=== PATIENT | female | born 1960 | race Caucasian/White ===

== ENCOUNTER 2017-12-09 16:01 | Emergency (ER) | payer OTHER ==
[~2017-12-09] VITALS: Ht 149.9 cm; Wt 44.7 kg
[2017-12-09 16:22] VITALS: BP 144/90
--- NOTE | 2017-12-09 16:25 | NUR ---
AFTER PROVIDING URINE SAMPLE, PT AMBULATES BACK TO THE LOBBY
--- NOTE | 2017-12-09 17:03 | NUR ---
PT ROOMED IN ED BED 6 REPORT GIVEN TO ALDEN WHARTON. EDMD AWARE.
[2017-12-09] MEDS ORDERED: FAMOTIDINE 20 MG/2 ML VIAL IVP ONE (17:20)
[2017-12-09] MEDS ORDERED: ONDANSETRON 4 MG/2 ML VIAL IVP ONE (17:20)
[2017-12-09] MEDS ORDERED: NACL 0.9% 1,000 ML IV ONE (17:20)
[2017-12-09] MEDS ORDERED: KETOROLAC 30 MG/ML VIAL IVP ONE (17:20)
[2017-12-09 17:40] LABS: BASOPHILS % (AUTO) 0.4 % (0.0-2.0); EOSINOPHILS % (AUTO) 0.5 % (0.0-4.0); HEMATOCRIT 42.9 % (36-48); HEMOGLOBIN 13.9 g/dL (12.0-16.0); LYMPHOCYTES # (AUTO) 2.3 K/uL (2.5-16.5); LYMPHOCYTES % (AUTO) 34.9 % (20.5-51.1); MEAN CORPUSCULAR HEMOGLOBIN 28 pg (27-31); MEAN CORPUSCULAR HGB CONC 32 g/dL (33-37); MEAN CORPUSCULAR VOLUME 87.7 fL (80-94); MONOCYTES # (AUTO) 0.4 K/uL (0.8-1.0); MONOCYTES % (AUTO) 6.4 % (1.7-9.3); NEUTROPHILS # (AUTO) 3.8 K/uL (1.8-7.7); NEUTROPHILS % (AUTO) 57.8 % (42.2-75.2); PLATELET COUNT (AUTO) 258 K/uL (140-450); RED BLOOD CELL COUNT(AUTO) 4.89 MIL/uL (4.20-5.40); RED CELL DISTRIBUTION WIDTH 13.7 % (11.6-13.7); WHITE BLOOD COUNT (AUTO) 6.5 K/uL (4.8-10.8)
[2017-12-09 17:49] LABS: PROTHROMBIN TIME 10.4 secs (10.8-13.4)
[2017-12-09 17:52] LABS: ALBUMIN 4.3 g/dL (3.4-5.0); ANION GAP 12.5 (8-16); CARBON DIOXIDE 26.2 mmol/L (21-32); CREATININE 0.9 mg/dL (0.6-1.3); POTASSIUM 3.7 mmol/L (3.5-5.1); TOTAL BILIRUBIN 0.4 mg/dL (0.0-1.0)
[2017-12-09 18:03] LABS: APPEARANCE,URINE CLEAR (CLEAR); BILIRUBIN,URINE NEGATIVE (NEGATIVE); BLOOD, URINE 1+ (NEGATIVE); COLOR,URINE YELLOW (YELLOW); LEUKOCYTE ESTERASE ,URINE 1+ (NEGATIVE); NITRITE, URINE NEGATIVE (NEGATIVE); PH,URINE 8.5 (5.0-9.0); UGLUCOSE NEGATIVE (NEGATIVE)
--- NOTE | 2017-12-09 19:12 | NUR ---
Dr. Carrera evaluating patient at bedside.
[2017-12-09 19:15] LABS: RBC,URINE 0-5 (RARE) /HPF (0-5)
[2017-12-09 20:29] VITALS: BP 140/85
--- NOTE | 2017-12-09 20:29 | NUR ---
Patient discharged with v/s stable. Written and verbal after care instructions given and explained. Patient alert, oriented and verbalized understanding of instructions. Ambulatory with steady gait. All questions addressed prior to discharge. ID band removed. Patient advised to follow up with PMD. Rx of zantac and tramadol given. Patient educated on indication of medication including possible reaction and side effects. Opportunity to ask questions provided and answered.
== END 2017-12-09 20:29 | disposition home or self-care (01) ==
LOC: MED 16:01
DX: R10.9 Unspecified abdominal pain (principal); I10 Essential (primary) hypertension; Z90.49 Acquired absence of other specified parts of digestive tract
CPT/HCPCS: 36415; 71045; 76700; 80053; 81001; 82150; 83690; 84484; 85025; 85610; 85730; 87086; 93005; 96374; 96375; 99285; J1885; J2405; J3490; Q0092